=== PATIENT | male | born 1950 | race Asian ===

== ENCOUNTER 2021-04-01 09:48 | Emergency (ER) | payer MEDICARE, OTHER ==
[~2021-04-01] VITALS: Ht 160 cm; Wt 49.9 kg
[2021-04-01 10:26] VITALS: BP 145/91
[2021-04-01] MEDS ORDERED: HYDROcodone-ACET 5/325MG TAB PO ONE (12:30)
== END 2021-04-01 12:39 | disposition home or self-care (01) ==
LOC: ER 09:48 → EDBD 09:48 → ER 12:39
DX: S83.91XA Sprain of unspecified site of right knee, initial encounter (principal); M25.461 Effusion, right knee; I10 Essential (primary) hypertension; E11.9 Type 2 diabetes mellitus without complications; E78.5 Hyperlipidemia, unspecified; W01.0XXA Fall on same level from slipping, tripping and stumbling without subsequent striking against object, initial encounter; Y93.89 Activity, other specified; Y92.89 Other specified places as the place of occurrence of the external cause; Y99.8 Other external cause status
CPT/HCPCS: 73562

== ENCOUNTER 2022-10-03 18:07 | Emergency (ER) | payer MEDICARE, MEDICAID ==
[~2022-10-03] VITALS: Ht 162.6 cm; Wt 60.0 kg
[2022-10-03 19:25] LABS: Urine Bacteria MANY /hpf (None Seen); Urine Blood 3+ /uL (Negative); Urine Specific Gravity 1.008 (1.001-1.035); Urine WBC 16 /hpf (0 - 3); Urine WBC Clumps PRESENT /hpf (None Seen)
[2022-10-03] MEDS ORDERED: cefTRIAXone SOD 1,000 MG VL IM ONE (19:30)
[2022-10-03 20:36] LABS: Basophils # (auto) 0.1 10 ^3/uL (0-0.2); Basophils % (auto) 0.8 % (0.0-2.0); Eosinophils # (auto) 0.1 10 ^3/uL (0-0.8); Eosinophils % (auto) 0.8 % (0.0-7.0); Hematocrit 40.8 % (41.0-53.0); Lymphocytes # (auto) 1.1 10 ^3/uL (0.4-5.4); Lymphocytes % (auto) 9.3 % (10.0-50.0); Mean Corpuscular Hemoglobin 30.3 pg (28.0-32.0); Mean Corpuscular Hgb Conc. 34.2 g/dL (32.0-36.0); Mean Corpuscular Volume 88.5 fL (80.0-100.0); Monocytes # (auto) 0.5 10 ^3/uL (0-1.3); Monocytes % (auto) 4.6 % (0.0-12.0); Neutrophils # (auto) 9.8 10 ^3/uL (1.6-8.6); Neutrophils % (auto) 84.5 % (37.0-80.0); Red Blood Cells 4.61 10^6/uL (4.5-5.90); Red Cell Distribution Width 13.1 % (11.8-14.3); White Blood Cell 11.6 10^3/uL (4.4-10.8)
[2022-10-03 20:55] LABS: Albumin 3.7 g/dL (3.4-5.0); BUN/Creatinine Ratio 17.6; Calcium 9.6 mg/dL (8.5-10.1); Potassium 4.2 mmol/L (3.5-5.1)
[2022-10-03 20:58] LABS: Bilirubin, Total 0.6 mg/dL (0.2-1.0); Total Protein 7.4 g/dL (6.4-8.2)
[2022-10-03] MEDS ORDERED: NITR-87 PO (21:42)
[2022-10-03 23:09] VITALS: BP 160/99
== END 2022-10-03 23:10 | disposition home or self-care (01) ==
LOC: EDBD 18:07 → ER 18:07
DX: R33.9 Retention of urine, unspecified (principal); N39.0 Urinary tract infection, site not specified; I10 Essential (primary) hypertension; E11.9 Type 2 diabetes mellitus without complications; E78.5 Hyperlipidemia, unspecified
CPT/HCPCS: 36415; 51702; 80053; 81001; 85025; 96372; 99284; J0696

== ENCOUNTER 2022-11-02 01:24 | Emergency (ER) | payer MEDICARE, MEDICAID ==
[~2022-11-02] VITALS: Ht 154.9 cm; Wt 59.0 kg
[~2022-11-02 01:24] MED LIST: NITR-87 PO
[2022-11-02 02:42] LABS: Urine Bacteria FEW /hpf (None Seen); Urine Blood 3+ /uL (Negative); Urine Specific Gravity 1.012 (1.001-1.035); Urine WBC 54 /hpf (0 - 3); Urine WBC Clumps PRESENT /hpf (None Seen)
[2022-11-02] MEDS ORDERED: cefTRIAXone SOD 1,000 MG VL IM ONE (05:30)
[2022-11-02 07:47] VITALS: BP 151/86
== END 2022-11-02 08:27 | disposition home or self-care (01) ==
LOC: EDBD 01:24 → ER 01:24
DX: R30.0 Dysuria (principal); R33.9 Retention of urine, unspecified; I10 Essential (primary) hypertension; E11.9 Type 2 diabetes mellitus without complications; E78.5 Hyperlipidemia, unspecified; Z79.899 Other long term (current) drug therapy
CPT/HCPCS: 51702; 81001; 96372; 99284; J0696

== ENCOUNTER → 2022-11-09 | Outpatient (CLI) | payer MEDICARE, MEDICAID | END | disposition home or self-care (01) | LOC: LAB 09:59 | PROVIDERS: ATTEND Urology | DX: N40.0 Benign prostatic hyperplasia without lower urinary tract symptoms (principal) | CPT/HCPCS: 84153; 84154 ==

== ENCOUNTER 2022-11-16 08:05 | Observation (INO) | payer MEDICARE, MEDICAID ==
[2022-11-13 12:32] LABS: Basophils # (auto) 0.1 10 ^3/uL (0-0.2); Eosinophils # (auto) 0.3 10 ^3/uL (0-0.8); Eosinophils % (auto) 3.2 % (0.0-7.0); Hematocrit 45.4 % (41.0-53.0); Hemoglobin 15.6 g/dL (13.5-17.5); Lymphocytes # (auto) 2.2 10 ^3/uL (0.4-5.4); Lymphocytes % (auto) 22.3 % (10.0-50.0); Mean Corpuscular Hemoglobin 30.6 pg (28.0-32.0); Mean Corpuscular Hgb Conc. 34.4 g/dL (32.0-36.0); Mean Corpuscular Volume 88.9 fL (80.0-100.0); Monocytes # (auto) 0.5 10 ^3/uL (0-1.3); Monocytes % (auto) 5.7 % (0.0-12.0); Neutrophils # (auto) 6.5 10 ^3/uL (1.6-8.6); Neutrophils % (auto) 67.8 % (37.0-80.0); Nucleated Red Blood Cells % 0.1 %; Red Cell Distribution Width 13.3 % (11.8-14.3); White Blood Cell 9.6 10^3/uL (4.4-10.8)
[2022-11-13 12:46] LABS: INR 0.9 (0.9-1.15)
[2022-11-13 13:37] LABS: Albumin 3.7 g/dL (3.4-5.0); Calcium 9.2 mg/dL (8.5-10.1); Potassium 4.2 mmol/L (3.5-5.1)
[2022-11-13 13:40] LABS: BUN/Creatinine Ratio 17.1
[2022-11-13 13:42] LABS: Bilirubin, Total 0.4 mg/dL (0.2-1.0); Total Protein 8.1 g/dL (6.4-8.2)
[2022-11-13 15:06] LABS: Urine Bacteria FEW /hpf (None Seen); Urine Blood 3+ /uL (Negative); Urine Specific Gravity 1.023 (1.001-1.035); Urine WBC 287 /hpf (0 - 3); Urine WBC Clumps PRESENT /hpf (None Seen)
[~2022-11-16] VITALS: Ht 165.1 cm; Wt 58.9 kg
[2022-11-16] MEDS ORDERED: CIPROFLOXACIN 400MG/200ML 200 ML IV ONE (10:08)
[2022-11-16] MEDS ORDERED: GLYCOPYRROLATE 0.2 MG/ML 1ML VIAL ONE (11:05)
[2022-11-16] MEDS ORDERED: ONDANSETRON HCL 4 MG/2 ML VIAL ONE (11:05)
[2022-11-16] MEDS ORDERED: PROPOFOL 10 MG/ML 20 ML IV ONE ×2 (11:05→13:47)
[2022-11-16] MEDS ORDERED: DexAMETHasone SOD PHOS 10MG/1ML VIAL INJ ONE (11:06)
[2022-11-16] MEDS ORDERED: SODIUM CHLORIDE LOCK 10 ML ONE (11:16)
[2022-11-16] MEDS ORDERED: ePHEDrine SULFATE 50 MG/ML AMP ONE (11:17)
[2022-11-16] MEDS ORDERED: fentaNYL CITRATE 100 MCG/2 ML VL ONE (11:37)
[2022-11-16] MEDS ORDERED: ESMOLOL HCL 10 ML IV ONE (11:39)
[2022-11-16] MEDS ORDERED: MORPHINE SULFATE INJ 2 MG/ml SYRG IV PRN (13:15)
[2022-11-16] MEDS ORDERED: NITROGLYCERIN 0.4 MG SL TAB SL PRN (13:15)
[2022-11-16] MEDS ORDERED: BELLADONNA ALKAL/OPIUM (16.2/30MG) RECT SUPP PR ONE (13:15)
[2022-11-16] MEDS ORDERED: ePHEDrine SULFATE 50 MG/ML AMP IV PRN (13:30)
[2022-11-16] MEDS ORDERED: NALOXONE HCL 0.4 MG/ML VIAL IV PRN (13:30)
[2022-11-16] MEDS ORDERED: FLUMAZENIL 0.1 MG/ML INJ 10ML MDV IV PRN (13:30)
[2022-11-16] MEDS ORDERED: LABETALOL HCL 5 MG/ML 4ML SYRINGE IV PRN (13:30)
[2022-11-16] MEDS ORDERED: hydrALAZINE HCL 20 MG/ML VL IV PRN (13:30)
[2022-11-16] MEDS ORDERED: fentaNYL CITRATE 100 MCG/2 ML VL IV PRN (13:30)
[2022-11-16] MEDS ORDERED: ONDANSETRON HCL 4 MG/2 ML VIAL IV PRN (13:30)
[2022-11-16] MEDS: HYDROmorphone HCL 2 MG/ML VL/or syr IV PRN ×2 (13:53→14:05)
[2022-11-16 16:00] VITALS: BP 169/95
[2022-11-16] MEDS ORDERED: OXYBUTYNIN CHL 5 MG TAB PO ONE (16:00)
[2022-11-16 16:18] VITALS: BP 166/86
[2022-11-16] MEDS: HYDROcodone-ACET 5/325MG TAB PO PRN ×2 (16:55→22:48)
[2022-11-16 18:06] VITALS: BP 149/75
[2022-11-16] MEDS: DOCUSATE SOD 100 MG CAP PO SCH (21:20)
[2022-11-16 22:00] VITALS: BP 140/84
[2022-11-16] MEDS ORDERED: KETOROLAC TROMETH 30 MG/ML 1ML VIAL IV ONE (23:30)
[2022-11-17 05:00] VITALS: BP 112/76
[2022-11-17 09:00] VITALS: BP 126/73
[2022-11-17] MEDS: DOCUSATE SOD 100 MG CAP PO SCH (10:51)
== END 2022-11-17 13:08 | disposition home or self-care (01) ==
LOC: SUR 08:05 → OVERFLOW 13:09 → WEST WING 15:24
PROVIDERS: ADMIT Urology; ATTEND Urology
DX: N40.1 Benign prostatic hyperplasia with lower urinary tract symptoms (principal); Z20.822 Contact with and (suspected) exposure to COVID-19; R33.8 Other retention of urine; I10 Essential (primary) hypertension; E11.9 Type 2 diabetes mellitus without complications; Z79.899 Other long term (current) drug therapy
CPT/HCPCS: 36415; 52601; 80053; 81001; 82962; 85025; 85610; 85730; 87086; 87088; 87186; 88305; 88342; G0378; J0744; J1100; J1170; J2405; J2704; J3010; U0003